=== PATIENT | female | born 1980 | race Caucasian/White ===

== ENCOUNTER 2021-10-14 23:40 | Emergency (ER) | payer SELFPAY ==
[~2021-10-14] VITALS: Ht 158 cm; Wt 62.0 kg
[2021-10-15] MEDS ORDERED: ONDA4TAB11 PO (00:07)
[2021-10-15] MEDS ORDERED: LISI10TA25 PO (00:07)
--- NOTE | 2021-10-15 00:12 | ED Cough/URI ---
General Chief Complaint: Head/Cervical Problems Stated Complaint: ABARCA,WEAKNESS,N/V,FEVER,COUGH Source: interventional nurse (LANGUAGE LINE) History of Present Illness Date Seen by Provider: Oct 14, 2021 Time Seen by Provider: 23:55 Initial Comments PT ARRIVES VIA POV SYMPTOMS BEGAN ON Wednesday10/13/21 C/O SUBJECTIVE FEVER C/O HEADACHE C/O NAUSEA/VOMITING, NO DIARRHEA C/O COUGH/CONGESTION. NO DIFFICULTY BREATHING C/O GENERALIZED WEAKNESS/FATIGUE NO LOSS OF TASTE OR SMELL PT IS DRINKING LIQUIDS AND VOIDING NORMALLY TOOK 1 TYLENOL YESTERDAY, NO RELIEF WENT TO [facility] TODAY AND WAS PRESCRIBED ZOFRAN AND LISINOPRIL. IS NOT KNOWN IF SHE HAD ANY TESTING DONE. DOES NOT APPEAR THAT SHE HAS TAKEN EITHER OF THESE MEDICATIONS YET. PT IS NOT VACCINATED AGAINST COVID-19 NO KNOWN SICK CONTACTS. NEEDS A NOTE FOR WORK--WORKS AT [employer] UNKNOWN PCP: [facility] Allergies and Home Medications Allergies Coded Allergies: No Known Drug Allergies (Unverified , 10/15/21) Patient Home Medication List Home Medication List Reviewed: Yes Lisinopril (Lisinopril) 10 Mg Tablet, 10 MG PO DAILY, (Reported) Entered as Reported by: JC SPIVEY on 10/15/216 Last Action: New Order Ondansetron (Ondansetron Odt) 4 Mg Tab.rapdis, 4 MG PO, (Reported) Entered as Reported by: JC SPIVEY on 10/15/216 Last Action: New Order Review of Systems Review of Systems Constitutional: see HPI, fever, malaise, weakness EENTM: see HPI, nose congestion Respiratory: cough; No short of breath Cardiovascular: no symptoms reported Gastrointestinal: see HPI; No abdominal pain, No diarrhea; loss of appetite, nausea, vomiting Genitourinary: no symptoms reported; No decreased output Musculoskeletal: no symptoms reported Skin: no symptoms reported; No rash Psychiatric/Neurological: See HPI, Headache Hematologic/Lymphatic: No Symptoms Reported Immunological/Allergic: no symptoms reported Past Hcpfrtl-Kvqjob-Wzfmtx Hx Past Medical History Cardiac: Yes Hypertension Psychosocial: Yes Anxiety Physical Exam Vital Signs - First Documented 10/14/21 23:47 Temp 38.4 Pulse 105 Resp 20 B/P (MAP) 168/93 (118) Pulse Ox 99 O2 Delivery Room Air Capillary Refill : Height: '" Weight: lbs. oz. kg; BMI Method: General Appearance: WD/WN, no apparent distress HEENT: PERRL/EOMI, normal ENT inspection, TMs normal, pharynx normal Neck: non-tender, full range of motion, supple, normal inspection Respiratory: normal breath sounds, no respiratory distress, no accessory muscle use Cardiovascular: regular rate, rhythm, no murmur Gastrointestinal: non tender, soft Extremities: normal inspection, normal capillary refill Neurologic/Psychiatric: closing manager II-XII nml as tested, no motor/sensory deficits, alert, normal mood/affect, oriented x 3 Skin: normal color (PT IS ), warm/dry; No rash Progress/Results/Core Measures Suspected Sepsis SIRS Temperature: Pulse: Respiratory Rate: Blood Pressure / Mean: Results/Orders Lab Results Laboratory Tests Test 10/14/21 23:50 Range/Units Influenza Type A (RT-PCR) Not Detected Not Detecte Influenza Type B (RT-PCR) Not Detected Not Detecte SARS-CoV-2 RNA (RT-PCR) Not Detected Not Detecte My Orders Orders - ILENE PRETTY DO Influenza A And B By Pcr (10/14/21 23:49) Covid 19 Inhouse Test (10/14/21 23:49) Acetaminophen Tablet (Tylenol Tablet) (10/15/21 00:15) Ibuprofen Tablet (Motrin Tablet) (10/15/21 00:15) Medications Given in ED Current Medications Medications Dose Ordered Sig/Madie Route Start Time Stop Time Status Last Admin Dose Admin Acetaminophen 1,000 mg ONCE ONCE PO 10/15/21 00:15 10/15/21 00:16 DC 10/15/21 00:16 1,000 MG Ibuprofen 800 mg ONCE ONCE PO 10/15/21 00:15 10/15/21 00:16 DC 10/15/21 00:16 800 MG Vital Signs/I&O 10/14/21 10/15/21 23:47 00:40 Temp 38.4 38.6 Pulse 105 90 Resp 20 16 B/P (MAP) 168/93 (118) 145/79 Pulse Ox 99 98 O2 Delivery Room Air Room Air Capillary Refill : Progress Note : Progress Note PLACED IN ISOLATION ROOM PPE WORN COVID-19 TESTING PERFORMED GIVEN TYLENOL AND MOTRIN FOR FEVER OF 101.2 HERE. NO HYPOXIA NO COUGH NO DYSPNEA NO VOMITING OR DIARRHEA STRESSED THE IMPORTANCE OF FOLLOW UP WITH [facility] AND NEED FOR QUARANTINE AND NEED FOR RE-TESTING IN 2 DAYS. Departure Impression Primary Impression: Person under investigation for COVID-19 Additional Impression: Viral syndrome Disposition: 01 HOME, SELF-CARE Condition: Stable Departure-Patient Inst. Decision time for Depature: 00:36 Referrals: [facility] Patient Instructions: COVID-19 Tests, Preventing the Spread of an Infectious D isease, VIRAL SYNDROME Add. Discharge Instructions: TYLENOL 1 GRAM /MOTRIN 800 MG 4 TIMES A DAY FOR PAIN OR FEVER LOTS OF CLEAR LIQUIDS TAKE ZOFRAN ( ONDANSETRON) EVERY 4 HOURS NEEDED FOR NAUSEA AND VOMITING TAKE LISINOPRIL EVERY DAY FOR BLOOD PRESSURE FOLLOW UP WITH [facility] IN 2 DAYS FOR FURTHER CARE--CALL IN THE MORNING TO SCHEDULE APPOINTMENT QUARANTINE YOURSELF AND ALL HOUSEHOLD CONTACTS UNTIL YOU ARE RECHECKED AND CLEARED BY RETURN TO ER IF SYMPTOMS WORSEN All discharge instructions reviewed with patient and/or family. Voiced understanding. Work/School Note: Work Release Form Date Seen in the Emergency Department: Oct 14, 2021 Restrictions: Need Release from Doctor ILENE PRETTY DO Oct 15, 2021 00:12
[2021-10-15] MEDS ORDERED: ACETAMINOPHEN 500 MG TAB (TYLENOL) PO ONE (00:15)
[2021-10-15] MEDS ORDERED: IBUPROFEN 800 MG (MOTRIN) TAB PO ONE (00:15)
[2021-10-15 00:40] VITALS: BP 145/79
== END 2021-10-15 00:55 | disposition home or self-care (01) ==
LOC: ER 23:43
DX: B34.9 Viral infection, unspecified (principal); I10 Essential (primary) hypertension; Z20.822 Contact with and (suspected) exposure to COVID-19
CPT/HCPCS: 87636; 99283